=== PATIENT | female | born 1945 | race Caucasian/White ===

== ENCOUNTER 2023-06-24 13:09 | Inpatient (IN) | payer MEDICARE ==
[2023-06-24] VITALS (41 sets, daily range): BP systolic 54–131; BP diastolic 36–80
[~2023-06-24] VITALS: Ht 154.9 cm; Wt 61.0 kg
[2023-06-24 13:39] LABS: BASO% 0.3 % (0-3); EOS% 0.1 % (0-8); HEMATOCRIT 37.6 % (37.0-47.0); IMMATURE GRANULOCYTES 0.7 % (0.0-5.0); LYMPH% 5.3 % (15-41); MEAN CELL VOLUME 91.5 fL CALC (80.0-100.0); MEAN CORPUSCULAR HGB 29.2 pG CALC (26.0-32.0); MEAN CORPUSCULAR HGB CONC 31.9 g/dL CAL (32.0-36.0); MONO% 6.9 % (2-13); NEUT# 10.8 thou/uL (2.00-7.15); NEUT% 86.7 % (42-76); RED BLOOD COUNT 4.11 mill/uL (4.20-5.60); RED CELL DISTRI WIDTH 14.4 % (11.5-15.5)
[2023-06-24 13:51] LABS: ALBUMIN 3.6 g/dL (3.2-5.0); BILIRUBIN, TOTAL 0.6 mg/dL (0.02-1.3); CREATININE 1.8 mg/dL (0.5-1.0); POTASSIUM 4.6 mmol/l (3.5-5.1); TOTAL PROTEIN 6.2 g/dL (6.3-8.2)
[2023-06-24 14:28] LABS: URINE COLOR YELLOW; URINE GLUCOSE - DIPSTICK NEGATIVE (NEGATIVE); URINE KETONE 15 mg/dL (NEGATIVE); URINE NITRITE - DIPSTICK NEGATIVE (Negative); URINE PH 5.5 (4.5-8.0); URINE PROTEIN - DIPSTICK 30 mg/dL (NEG-TRACE); URINE SPECIFIC GRAVITY 1.015
[2023-06-24 14:29] LABS: URINE BACTERIA MANY hpf; URINE BLOOD DIPSTICK TRACE (NEGATIVE); URINE EPITHELIAL CELLS MODERATE EPI/hpf (0-FEW); URINE LEUK ESTERASE MODERATE (NEGATIVE); URINE MUCUS MODERATE hpf (NONE-FEW); URINE RBC 0-2 RBC/hpf (0-5); URINE WBC 20-50 WBC/hpf (0-5)
[2023-06-24 19:23] LABS: BASO% 0.2 % (0-3); HEMATOCRIT 33.7 % (37.0-47.0); HEMOGLOBIN 10.6 g/dl (12.0-16.0); IMMATURE GRANULOCYTES 0.4 % (0.0-5.0); LYMPH% 4.5 % (15-41); MEAN CELL VOLUME 92.6 fL CALC (80.0-100.0); MEAN CORPUSCULAR HGB 29.1 pG CALC (26.0-32.0); MEAN CORPUSCULAR HGB CONC 31.5 g/dL CAL (32.0-36.0); MONO% 10.2 % (2-13); NEUT# 13.58 thou/uL (2.00-7.15); NEUT% 84.7 % (42-76); RED BLOOD COUNT 3.64 mill/uL (4.20-5.60); RED CELL DISTRI WIDTH 14.6 % (11.5-15.5)
[2023-06-25] VITALS: BP 104/65
[2023-06-25 00:24] VITALS: BP 93/65
[2023-06-25 00:41] VITALS: BP 104/65
== END 2023-06-25 00:38 | disposition short-term general hospital (02) | DRG 558 ==
LOC: ED 13:09 → ED-I 16:17 → ICU 16:34 → ED 16:34 → ICU 06-25 00:38
PROVIDERS: Internal Medicine; Nurse Practitioner; ADMIT Internal Medicine; ATTEND Internal Medicine
PROC: 06HY33Z Insertion of Infusion Device into Lower Vein, Percutaneous Approach (ICD-10-PCS; principal; 2023-06-24)
PROC: 3E043XZ Introduction of Vasopressor into Central Vein, Percutaneous Approach (ICD-10-PCS; 2023-06-24)
DX: M62.82 Rhabdomyolysis (principal); N17.9 Acute kidney failure, unspecified; N39.0 Urinary tract infection, site not specified; K92.2 Gastrointestinal hemorrhage, unspecified; I95.9 Hypotension, unspecified; E86.0 Dehydration; L89.310 Pressure ulcer of right buttock, unstageable; L89.210 Pressure ulcer of right hip, unstageable; I10 Essential (primary) hypertension; B96.20 Unspecified Escherichia coli [E. coli] as the cause of diseases classified elsewhere; Z90.5 Acquired absence of kidney
CPT/HCPCS: S0164